=== PATIENT | female | born 1945 | race Caucasian/White ===

== ENCOUNTER → 2019-05-13 | Outpatient (CLI) | payer OTHER, BC ==
[~2019-05-13] VITALS: Ht 162.6 cm; Wt 67.1 kg
[~2019-05-13] MED LIST: ADULT LOW DOSE81 MG PO; ALLOPURINOL 10100 M1 PO; ALPRAZOLAM 0.50.5 M1 PO; ALPRAZOLAM 0.50.5 MG PO; ASPIRIN EC81 M1 PO; ASPIRIN81 M2 PO; ATENOLOL 25MG T25 M1 PO; ATENOLOL 50 MG50 M1 PO; ATENOLOL 50MG T50 M1 PO; B-COMPLEX PLUS1 EACH PO; B12INJ IM; BYSTOLIC 5 MG5 M1 PO; CARVEDILOL25 MG PO; CO Q-10150 MG PO; COQ-10 PO; COQ-10100 MG PO; COREG CR20 MG PO; DETROL LA4 MG PO; DITROPAN XL10 M1 PO; ESCITALOPRAM OXA5 MG PO; HYDROCODON-ACE1 EAC7 PO; HYDROCODON-ACE1 EACH; IRBESARTAN300 MG PO; LEVOTHYROXINE0.05 MG PO; LEVOXYL100 MCG PO; LIVALO2 MG PO; MELATONIN3 MG PO; METAMUCIL PLUS1 EACH PO; METAMUCIL POWD798 GM; METAMUCIL0.52 GM PO; MOBIC15 MG PO; NEXIUM40 MG PO; NORCO 5-325 TA1 EACH PO; NORFLEX100 MG PO; OXYBUTYNIN CHLO10 MG PO; PANTOPRAZOLE SO40 M1 PO; PANTOPRAZOLE SO40 MG PO; RANITIDINE HCL300 M1 PO; VICODIN 5-5001 EACH PO; VITAMIN B-12100 MC1; VITAMIN B-12500 MCG IM; VITAMIN D32000 UNIT PO; VITAMIN D35000 UNI1 PO; VOLTAREN GEL 1100 G1; VOLTAREN GEL 1100 G1 TOP; XANAX 0.25 MG0.25 MG PO; [UNRECOGNIZED DRUG - OTHER] PO
--- NOTE | ~2019-05-13 | P ---
[facility] [place] [address] [address] [place] [address] PROCEDURE REPORT Name: LOVEMelissa SALO Room #: REG [facility]#: [id number] Admission: 05/13/19 Attend Phys: Jaime Bauer MD Discharge: Date of : 41 Report #: [id number] THIS REPORT FOR: //name// CC: SEBASTIAN Bauer DATE OF SERVICE: 05/13/2019 BRIEF HISTORY: The patient is a 73-year-old woman with history of previous colon adenomas for high risk screening. She also reports recently she has had problems with diarrhea with multiple loose and watery stools daily of uncertain etiology. PREOPERATIVE DIAGNOSIS: High risk screening. POSTOPERATIVE DIAGNOSES: 1. Mild sigmoid diverticulosis coli. 2. Small internal hemorrhoids. MEDICATIONS: Deep sedation with propofol per Anesthesia. SPECIMENS: 1. Random biopsies, proximal colon, rule out colitis. 2. Random biopsies of distal colon and rectum, rule out colitis. ESTIMATED BLOOD LOSS: 3 mL. PROCEDURE: Colonoscopy to cecum and terminal ileum with biopsy. FINDINGS: Prior to propofol sedation, procedure of colonoscopy discussed with the patient as well as potential risks and its complications. She indicates she understands and desires to proceed. DESCRIPTION OF PROCEDURE: With the patient in left lateral decubitus position, digital examination was completed, which revealed no abnormalities. Subsequently, the Olympus video colonoscope was introduced in the rectum, advanced under direct vision. She had somewhat of a tortuous redundant colon, which made forward advancement a little slow and tedious, required splinting of the abdomen. I was able to reach the cecum and identify the appendiceal orifice and ileocecal valve. I was also able to cross the ileocecal valve and visualize the distal segment of terminal ileum, which was inspected and noted to be unremarkable. Specifically, there was no evidence of inflammatory disease in the distal ileum. At that point, the scope was slowly withdrawn and careful [facility] [address] [place] [address] PROCEDURE REPORT Name: Melissa ALEMAN Room #: REG [facility].#: [id number] Admission: 05/13/19 Attend Phys: Jaime Bauer MD Discharge: Date of : 41 Report #: [id number] circumferential views were obtained. Overall, the prep was good. The mucosa within normal limits, normal vascular pattern, normal light reflex. No inflammatory changes were seen throughout the colon. However, random biopsies were obtained from the proximal and distal colon in view of her history of diarrhea. In addition, no neoplastic lesions were seen. No polyps were seen on this examination. The scope was withdrawn through the colon and the sigmoid colon. There were noted to be few scattered diverticula without endoscopic evidence of diverticulitis. Scope was withdrawn in the rectum and no abnormalities were seen. Upon retroflexion, small hemorrhoids were seen. Scope was withdrawn. The patient tolerated the procedure well. CONDITION OF THE PATIENT UPON DISCHARGE: Following procedure, the patient drowsy, aroused, conversant and will be discharged home when fully ambulatory. INSTRUCTIONS TO THE PATIENT AND FAMILY AT THE TIME OF DISCHARGE: No neoplastic lesions were seen. At this point, I suggest followup colon exam in 10 years. She is nearly 74 and therefore in 10 years, she may not benefit from routine screening colonoscopy. However, some problems should arise, she is to return for further evaluation such as colonoscopy. As far as the diarrhea, I do not see any inflammatory changes. She may use Imodium as needed for the diarrhea at this point in time. I will follow up on biopsies and make further recommendations. She should also return to see me in followup in the office to further evaluate and manage diarrhea as needed. Withdrawal time from the cecum was 10 minutes 43 seconds. By: 1031 0054 Jaime Bauer MD /nt
--- NOTE | 2019-05-13 13:26 | P ---
[facility] [place] [address] PROCEDURE REPORT Name: LOVEMelissaSALO Room #: REG [facility]#: [id number] Admission: 05/13/19 Attend Phys: Jaime Bauer MD Discharge: Date of : 41 Report #: [id number] THIS REPORT FOR: //name// CC: Jair Healy MD [facility] Jaime Bauer DATE OF SERVICE: 05/13/2019 OUTPATIENT UPPER ENDOSCOPY REPORT BRIEF HISTORY: The patient is a 73-year-old woman with recurrent dysphagia. She also has reflux symptoms and when she tries to reduce her Nexium, she has recurrent symptoms. In addition to dysphagia, she also has occasional coughing. She also has bouts of chest burning that resolves with eating or drinking water. PREOPERATIVE DIAGNOSES: Dysphagia, reflux and chronic diarrhea. POSTOPERATIVE DIAGNOSES: 1. Moderate diffuse gastritis. 2. Dysphagia. MEDICATIONS: Deep sedation with propofol per anesthesia. SPECIMENS: 1. Small bowel biopsies, rule out celiac disease. 2. Biopsies of esophagus, rule out eosinophilic esophagitis. ESTIMATED BLOOD LOSS: 3 mL. PROCEDURE: EGD with biopsy and Atkins dilation. FINDINGS: Prior to propofol sedation, procedure of upper endoscopy was reviewed with the patient as well potential risks and its complications. She indicates she understands and desires to proceed. DESCRIPTION OF PROCEDURE: With the patient in left lateral decubitus position, the Olympus video endoscope was inserted in cervical esophagus under direct vision without difficulty. Examination of this organ through its entire length revealed normal esophageal mucosa down to the squamocolumnar junction. The squamocolumnar junction was inspected and noted to be unremarkable. No ulcers, erosions or evidence of esophagitis was seen. There was no evidence of Miles mucosa. A significant hiatus hernia was not seen. She has had dysphagia, but a [facility] [address] [place] [address] PROCEDURE REPORT Name: Melissa ALEMAN Room #: REG [facility]#: [id number] Admission: 05/13/19 Attend Phys: Jaime Bauer MD Discharge: Date of : 41 Report #: [id number] definite ring or stricture was not seen. Due to recurrent dysphagia, multiple random biopsies were obtained to evaluate for eosinophilic esophagitis. The scope was advanced in the stomach, was examined on end view as well as retroflexed views. She was again noted to have a pattern of diffuse erythematous gastritis. No ulcers, erosions or bleeding lesions were seen. Upon retroflexion, no mass lesions were seen. Hiatus hernia was not seen. Biopsies in the past of the gastritis were negative for H. pylori and those were not repeated today. Pylorus was normal. Duodenal bulb was normal. Duodenal sweep down to third portion was unremarkable. However, in view of her diarrhea, multiple biopsies obtained of the small bowel to evaluate for celiac disease. At that point, the scope was slowly withdrawn and careful circumferential views confirmed the above findings. The patient tolerated the procedure well. Following procedure, she was dilated with passage of 50-Greenlandic Atkins dilator. There was no resistance. Following procedure, the patient was drowsy and prepared for colonoscopy. INSTRUCTIONS TO THE PATIENT AND FAMILY AT THE TIME OF DISCHARGE: We will follow up on biopsies obtained today. As for her burning symptoms, I do not see esophagitis. We will change her Nexium to pantoprazole 40 mg daily. If she has good relief of symptoms regarding dilation, and if they recur in the future, she may return on an as needed basis for dilation. In view of her multiple symptoms, we will have her return to see me in followup in the office in about 6 weeks regarding diarrhea and dysphagia and burning symptoms. <ELECTRONICALLY SIGNED> By: Jaime Bauer MD 05/13/19 1326 [id number] 1142 Jaime Bauer MD /nt
--- NOTE | 2019-05-16 18:06 | PATH ---
[facility] [address] [place] [address] PATHOLOGY RPT PROCEDURE Name: LOVEMelissa SALGADOCARRIE Room #: REG [facility].#: [id number] Admission: 05/13/19 Date of : 41 Discharge: Report #: [id number] Path Case #: [id number] [facility] Accession Number: [id number] . 01 Material submitted: . PART A: small bowel - SMALL BOWEL BIOPSY RE:CHRONIC DIARRHEA R/O CELIAC DZ PART B: esophagus - BIOPSY ESOPHAGUS R/O EOSINOPHILIC ESOPHAGITIS R/T DYSPHAGIA PART C: colon - RANDOM BIOPSY PROXIMAL COLON R/O COLITIS R/T DIARRHEA. Modifiers: proximal PART D: rectum - BIOPSY DISTAL COLON AND RECTUM R/O COLITIS R/T DIARRHEA. Modifiers: distal . 01 Clinical history: . Pre-OP DX: Hx polyps, diarrhea Post-OP DX: Gastritis, dysphagia, diverticulosis, hemorrhoids . 02 Diagnosis: A. Small bowel mucosa, endoscopic biopsy: - No diagnostic abnormalities present. - Negative for villous blunting or increase in intraepithelial lymphocytes. . B. Squamous mucosa, esophagus rule out EOE, endoscopic biopsy: - Mild esophagitis along with rare (2 to 3) eosinophils per HPF. - One fragment of small bowel mucosa (floater) present amongst biopsy tissue showing no diagnostic abnormalities. . C. Large intestinal mucosa, random proximal colon, endoscopic biopsy: - Mild focal acute cryptitis, see comment. - Negative for dysplasia or malignancy. . D. Large intestinal mucosa, distal colon and rectum rule out colitis, endoscopic biopsy: - Mild fibrosis along with reactive changes within crypts, please see comment. - Negative for acute cryptitis. - Negative for dysplasia or malignancy. (IUV:pit; 05/16/2019) QTP/05/16/2019 . 02 Comment: Sections of the colonic mucosa designated "random proximal colon" show focal cryptitis, and a moderately cellular lamina propria composed predominantly of lymphocytes and plasma cells and occasional eosinophils. Surface ulceration is not identified. On the other hand, examination of the "distal colon and rectum" biopsy tissues show subtle fibrosis of the [facility] [address] [place] [address] PATHOLOGY RPT PROCEDURE Name: Melissa ALEMAN Room #: REG [facility]#: [id number] Admission: 05/13/19 Date of : 41 Discharge: Report #: [id number] Path Case #: [id number] lamina propria along with reactive hyperplastic changes. There are no crypt abscesses, granulomas or viral inclusions. Given the description, the differential diagnosis includes focal mild active colitis of self-limited etiology, reaction to bowel preparation, early infectious-type of colitis, as well as acute and chronic diverticulitis in addition to medication induced colitis. Please correlate with clinical as well as endoscopic findings. (IUV:pit; 05/16/2019) . 02 Electronically signed: . Angie Wakefield MD, Pathologist NPI- [id number] . 01 Gross description: . A. Received in formalin labeled "Love, E Carrie, small bowel BX, rule out celiac," and additionally labeled on the requisition as "Re: Chronic diarrhea," are 4 segments of bowman soft tissue measuring 1.2 x 0.9 x 0.4 cm in aggregate dimensions and ranging from 0.3 to 0.6 cm in maximum dimension. The specimen is submitted entirely in cassette A1. . B. Received in formalin labeled "Love, E Carrie, BX esophagus, rule out EOE, re: Dysphagia," are multiple segments of bowman soft tissue measuring 0.6 x 0.6 x 0.1 cm in aggregate dimensions. The specimen is filtered and entirely submitted in cassette B1. . C. Received in formalin labeled "Love, E Carrie, random BX proximal colon, rule out colitis," are 6 segments of bowman soft tissue measuring 1.1 x 0.9 x 0.3 cm in aggregate dimensions and ranging from 0.3 to 0.5 cm in maximum dimension. The specimen is submitted entirely in cassette C1. . D. Received in formalin labeled "Love, E Carrie, BX distal colon and rectum," and additionally labeled on the requisition as "rule out colitis, R/T diarrhea," are multiple segments of bowman soft tissue measuring 1.7 x 0.6 x 0.1 cm in aggregate dimensions. The specimen is filtered and entirely submitted in cassette D1. (TSD; 05/13/2019) TOB/TOB . 02 Pathologist provided ICD-10: K20.9, K62.89 . 02 CPT . 875429, 351953, 306843, 491942 Specimen Comment: A courtesy copy of this report has been sent to Specimen Comment: [phone], , . Specimen Comment: Report sent to ,DR HESS / DR WONG [facility]formed [facility] [address] [place] [address] PATHOLOGY RPT PROCEDURE Name: Melissa ALEMAN Room #: REG [facility].#: [id number] Admission: 05/13/19 Date of : 41 Discharge: Report #: [id number] Path Case #: [id number] [address], [place], [place] [id number] MD Bam Shrestha MD Phone: [phone] Performed at: [address] [id number] MD Angie Wakefield MD Phone: [phone]
== END | disposition home or self-care (01) ==
LOC: GI 07:30
DX: K57.30 Diverticulosis of large intestine without perforation or abscess without bleeding (principal); K64.8 Other hemorrhoids; R19.7 Diarrhea, unspecified; K21.0 Gastro-esophageal reflux disease with esophagitis; K29.70 Gastritis, unspecified, without bleeding; R13.19 Other dysphagia; K62.89 Other specified diseases of anus and rectum; Z86.010 Personal history of colon polyps; Z91.041 Radiographic dye allergy status; Z79.899 Other long term (current) drug therapy; Z98.890 Other specified postprocedural states
CPT/HCPCS: 62110; 62900

== ENCOUNTER → 2020-03-01 | Outpatient (CLI) | payer OTHER, BC | LOC: SJCVC 13:19 | PROVIDERS: ATTEND Internal Medicine Cardiovascular Disease | DX: R94.31 Abnormal electrocardiogram [ECG] [EKG] (principal); I25.10 Atherosclerotic heart disease of native coronary artery without angina pectoris; E78.00 Pure hypercholesterolemia, unspecified; E78.1 Pure hyperglyceridemia; I65.23 Occlusion and stenosis of bilateral carotid arteries; I70.1 Atherosclerosis of renal artery; I47.1 Supraventricular tachycardia; I48.91 Unspecified atrial fibrillation; I10 Essential (primary) hypertension; E03.9 Hypothyroidism, unspecified; Z79.899 Other long term (current) drug therapy ==

== ENCOUNTER → 2020-06-08 | Outpatient (CLI) | payer OTHER, BC | LOC: SJCVC 13:26 | PROVIDERS: ATTEND Internal Medicine Cardiovascular Disease | DX: R94.31 Abnormal electrocardiogram [ECG] [EKG] (principal); E87.5 Hyperkalemia; I70.1 Atherosclerosis of renal artery; I73.9 Peripheral vascular disease, unspecified; I65.23 Occlusion and stenosis of bilateral carotid arteries; I11.0 Hypertensive heart disease with heart failure; I50.9 Heart failure, unspecified; Z87.828 Personal history of other (healed) physical injury and trauma ==

== ENCOUNTER → 2020-06-14 | Outpatient (CLI) | payer OTHER ==
[~2020-06-14] VITALS: Ht 162.6 cm; Wt 67.1 kg
[~2020-06-14] MED LIST changes: +ASA81BEC PO
[2020-06-14 07:23] VITALS: BP 147/72
--- NOTE | 2020-06-15 17:38 | CATHLAB ---
[facility] [address] [place] [address] INVASIVE PROCEDURE REPORT Name: LOVEMelissa Room #: REG DIMA Damien#: [id number] Admission: 06/14/20 Attend Phys: Jonn Healy MD, Discharge: Date of : 41 Report #: [id number] THIS REPORT FOR: cc: Jair Newby MD, Gary A. MD Mancuso, Gerald M. MD [facility] ~ APPROVED REPORT Study performed: 06/14/2020 07:55:27 Patient Details Patient Status: Out-Patient Room #: The patient is a 75 year-old female Event Personnel Jonn Healy Supply Clerk, Tay Hopkins RN RN, Shalini Torres RTR, Bernabe Damico Roberta Monitor Procedures Performed Art Access - R femoral artery* Jorgito Access - R femoral vein Right and Left Heart Cath w/or w/o Coronarie [id number] [facility] Hemostasis w/ Mynx Hemostasis with Manual pressure Aortogram Abdominal Peripheral Angio 907585 Renal Bilateral Peripheral Angiography [id number] CVRENALBIL 20439 Initial Mod Sed Same Phys/QHP Gr5y 416836 71840 Mod Sed Same Phys/QHP Ea 197411 Indication Chest pain Procedure Narrative The Right Groin^ was infiltrated with 1% Lidocaine subcutaneous anesthesia. A PINNACLE 7FR Sheath #[id number] sheath was inserted into the RFV 7F^. Coronary angiography was performed using coronary diagnostic catheters. The right coronary system was accessed and visualized with a JR4 catheter. The left coronary system was accessed and visualized with a JL4 catheter. The left ventricle was accessed and visualized with a STR PIG catheter. Left ventriculogram was performed in 30 degree projection. The patient tolerated the procedure well and there were no complications associated with the procedure. There was no hematoma. Intraoperative Conscious Sedation Sedation start time: 839 Case end Time: 929 [facility] [place] [address] INVASIVE PROCEDURE REPORT Name: Melissa ALEMAN Room #: [facility] Damien#: [id number] Admission: 06/14/20 Attend Phys: Jonn Healy, Discharge: Date of : 41 Report #: [id number] Fentanyl 50 mcg Versed 1 mg Fluoro Time: 4.50 minutes Dose: DAP 6040.60 cGycm2 730 mGy Contrast Type and Amount: Visipaque 110 ml Hemodynamics The right atrial mean pressure is 13 mmHg. The right ventricular pressure is 45/8 mmHg. The pulmonary artery pressure is 49/16 mmHg with a mean of 29 mmHg. The mean pulmonary capillary wedge pressure is 18 mmHg. The aortic pressure is 135/60 mmHg with a mean of 47 mmHg. The left ventricular pressure is 129/16 mmHg with a mean of mmHg. The left ventricular end diastolic pressure is 23 mmHg. The cardiac output using thermo method is 4.45 L/min. The cardiac index using thermo method is 2.58 L/min/m2. Conclusion #1. Successful right heart catheterization with cardiac output by thermodilution. #2 normal left jugular size and systolic function lower limits of normal EF 55% #3 abdominal aortogram revealing moderate aortic ectasia calcification but no aneurysm or occlusive disease #4 left main short with mild disease giving rise to LAD and circumflex #5 LAD is a type I stop short of the apex proximal calcification is moderate no occlusive disease #6 nondominant circumflex first OM is a relatively small in caliber with a 70% eccentric lesion no indication for intervention here. #7 dominant right coronary with a proximal previously placed stent with a 40% in-stent restenosis preserved distal vessel dominant vessel. #7 right renal artery with a 50% ostial in-stent restenosis with otherwise well preserved flow. Not flow-limiting. #8 selective left renal artery injection and heavily calcified 3040% proximal lesion Recommendations and plan: Continue aggressive risk factor modification. Will limit salt and fluid intake. Continue aggressive risk factor modification. <ELECTRONICALLY SIGNED> By: Jonn Healy MD, FACC 06/15/201736 36 36 Jonn Healy MD, FACC /INF
== END | disposition home or self-care (01) ==
LOC: CATH 06:46
PROVIDERS: ATTEND Internal Medicine Cardiovascular Disease
DX: R07.9 Chest pain, unspecified (principal); I25.10 Atherosclerotic heart disease of native coronary artery without angina pectoris; T82.855A Stenosis of coronary artery stent, initial encounter; I70.1 Atherosclerosis of renal artery; I77.811 Abdominal aortic ectasia; I10 Essential (primary) hypertension; E78.5 Hyperlipidemia, unspecified; K21.9 Gastro-esophageal reflux disease without esophagitis; M10.9 Gout, unspecified; Z91.041 Radiographic dye allergy status; E03.9 Hypothyroidism, unspecified; F32.9 Major depressive disorder, single episode, unspecified; Z98.890 Other specified postprocedural states; Z79.899 Other long term (current) drug therapy; Z85.828 Personal history of other malignant neoplasm of skin; Z85.820 Personal history of malignant melanoma of skin; Z90.49 Acquired absence of other specified parts of digestive tract; Z90.710 Acquired absence of both cervix and uterus

== ENCOUNTER → 2020-10-08 | Outpatient (CLI) | payer OTHER | LOC: SJCVCIMAG 09:37 | PROVIDERS: ATTEND Internal Medicine Cardiovascular Disease | DX: R94.31 Abnormal electrocardiogram [ECG] [EKG] (principal); I25.10 Atherosclerotic heart disease of native coronary artery without angina pectoris; I11.0 Hypertensive heart disease with heart failure; I50.43 Acute on chronic combined systolic (congestive) and diastolic (congestive) heart failure; I70.1 Atherosclerosis of renal artery; I73.9 Peripheral vascular disease, unspecified; I65.23 Occlusion and stenosis of bilateral carotid arteries; I47.1 Supraventricular tachycardia; G47.33 Obstructive sleep apnea (adult) (pediatric); E03.9 Hypothyroidism, unspecified; Z90.49 Acquired absence of other specified parts of digestive tract; Z90.710 Acquired absence of both cervix and uterus; Z98.890 Other specified postprocedural states; Z99.89 Dependence on other enabling machines and devices; Z88.8 Allergy status to other drugs, medicaments and biological substances; Z79.82 Long term (current) use of aspirin; Z79.899 Other long term (current) drug therapy ==

== ENCOUNTER → 2020-11-01 | Outpatient (CLI) | payer OTHER | LOC: SJCVCIMAG 10-22 09:11 | PROVIDERS: ATTEND Internal Medicine Cardiovascular Disease | DX: I07.1 Rheumatic tricuspid insufficiency (principal); I27.20 Pulmonary hypertension, unspecified; I31.3 Pericardial effusion (noninflammatory); I11.9 Hypertensive heart disease without heart failure; I25.10 Atherosclerotic heart disease of native coronary artery without angina pectoris; Z79.899 Other long term (current) drug therapy ==

== ENCOUNTER → 2021-05-01 | Outpatient (CLI) | payer OTHER | LOC: SJCVC 13:07 | PROVIDERS: ATTEND Internal Medicine Cardiovascular Disease | DX: R94.31 Abnormal electrocardiogram [ECG] [EKG] (principal); I45.9 Conduction disorder, unspecified; I25.10 Atherosclerotic heart disease of native coronary artery without angina pectoris; I11.0 Hypertensive heart disease with heart failure; I50.43 Acute on chronic combined systolic (congestive) and diastolic (congestive) heart failure; I65.23 Occlusion and stenosis of bilateral carotid arteries; I42.9 Cardiomyopathy, unspecified; I73.9 Peripheral vascular disease, unspecified; I47.1 Supraventricular tachycardia; G47.33 Obstructive sleep apnea (adult) (pediatric); E78.00 Pure hypercholesterolemia, unspecified; E03.9 Hypothyroidism, unspecified; E78.1 Pure hyperglyceridemia; Z99.89 Dependence on other enabling machines and devices; Z79.82 Long term (current) use of aspirin; Z79.899 Other long term (current) drug therapy; Z72.89 Other problems related to lifestyle; Z88.8 Allergy status to other drugs, medicaments and biological substances ==